=== PATIENT | female | born 1975 | race Caucasian/White ===

== ENCOUNTER 2022-09-18 13:46 | Outpatient (CLI) | payer OTHER, SELFPAY ==
--- NOTE | 2022-09-18 14:00 | CRLHL7_ITS ---
For Patients: As a result of the Cures Act, medical imaging exams and procedure reports are released immediately into your electronic medical record. You may view this report before your referring provider. If you have questions, please contact your health care provider. BILATERAL SCREENING MAMMOGRAM WITH COMPUTER-AIDED DETECTION AND TOMOSYNTHESIS TECHNIQUE: CC and MLO views were obtained. These mammographic images have been obtained using full-field digital technique. These mammographic images were interpreted with the benefit of computer-aided detection. Breast Tomosynthesis was used in this interpretation. COMPARISON FILM: 02/14/21, 01/23/20, 11/27/18. FINDINGS: There are scattered areas of fibroglandular density IMPRESSION: There is no radiographic evidence for malignancy. ASSESSMENT: BI-RADS Category 2: Benign RECOMMENDATION: Routine screening mammogram in 1 year. A lay language report of this examination will be provided to the patient. Slava Lockwood M.D. Diagnostic/Nuclear Medicine Radiologist [email or web address] DANYEL/Dictated by: Slava Lockwood MD @ 09/21/2022 8:25:00 AM (Electronically Signed)
== END 2022-09-18 13:47 | disposition home or self-care (01) ==
LOC: MAMMO 13:49
PROVIDERS: PCP Emergency Medicine; Visit Provider Emergency Medicine
DX: Z12.31 Encounter for screening mammogram for malignant neoplasm of breast (principal)
CPT/HCPCS: 77063; 77067

== ENCOUNTER 2022-11-07 10:33 | Outpatient (CLI) | payer SELFPAY | END 2022-11-07 10:34 | disposition home or self-care (01) | LOC: NFLDREF 11-09 09:28 | PROVIDERS: PCP Emergency Medicine; Referring Provider Emergency Medicine; Visit Provider Emergency Medicine | DX: E78.5 Hyperlipidemia, unspecified (principal) | CPT/HCPCS: 80061; 84460 ==

== ENCOUNTER 2024-05-19 14:35 | Outpatient (CLI) | payer BC, SELFPAY ==
--- NOTE | 2024-05-19 14:40 | CRLHL7_ITS ---
For Patients: As a result of the Century Cures Act, medical imaging exams and procedure reports are released immediately into your electronic medical record. You may view this report before your referring provider. If you have questions, please contact your health care provider. BILATERAL SCREENING MAMMOGRAM WITH COMPUTER-AIDED DETECTION AND TOMOSYNTHESIS TECHNIQUE: CC and MLO views were obtained. These mammographic images have been obtained using full-field digital technique. These mammographic images were interpreted with the benefit of computer-aided detection. Breast Tomosynthesis was used in this interpretation. COMPARISON FILM: 09/18/22, 02/14/21, 01/23/20. FINDINGS: There are scattered areas of fibroglandular density IMPRESSION: There is no radiographic evidence for malignancy. ASSESSMENT: BI-RADS Category 1: Negative RECOMMENDATION: Routine screening mammogram in 1 year. A lay language report of this examination will be provided to the patient. Kvng David M.D. Diagnostic Radiologist [email or web address] DANYEL/Dictated by: Kvng David MD @ 05/27/2024 12:34:00 PM (Electronically Signed)
== END 2024-05-19 14:36 | disposition home or self-care (01) ==
LOC: MAMMO 14:35
PROVIDERS: PCP Physician Assistant Medical
DX: Z12.31 Encounter for screening mammogram for malignant neoplasm of breast (principal)
CPT/HCPCS: 77063; 77067

== ENCOUNTER 2024-07-09 14:51 | Outpatient (CLI) | payer BC, SELFPAY ==
--- NOTE | 2024-07-09 15:00 | CRLHL7_ITS ---
For Patients: As a result of the Century Cures Act, medical imaging exams and procedure reports are released immediately into your electronic medical record. You may view this report before your referring provider. If you have questions, please contact your health care provider. INDICATION: Chronic sinusitis. TECHNIQUE: High-resolution CT images of the paranasal sinuses were obtained without contrast. FINDINGS: Frontal: The frontal air cells are hypoplastic. The small but dominant right frontal air cell is clear and the inferior frontal recess patent. Ethmoid: The ethmoid air cells are clear bilaterally. Sphenoid: Sphenoid air cells are clear the sphenoid ethmoidal recesses are patent. Maxillary: Maxillary sinuses are clear at this time. There are small bilateral Hadley cells. The adjacent to the ostiomeatal units are patent bilaterally. Nasal fossa: Subtle convex left curve of the nasal septum the posterior nasal fossa and the nasopharynx are unremarkable. Mastoid air cells are clear bilaterally. IMPRESSION: 1. Clear paranasal sinuses and patent bilateral ostiomeatal units at this time. 2. Incidental note of hypoplastic frontal air cells. 3. Subtle convex left curvature of the nasal septum. Please note that all CT scans at this facility use dose modulation, iterative reconstruction, and/or weight-based dosing when appropriate to reduce radiation dose to as low as reasonably achievable. Dictated by Slava Trejo MD @ 07/10/2024 11:15:24 AM (Electronically Signed)
== END 2024-07-09 14:52 | disposition home or self-care (01) ==
LOC: CT 14:52
PROVIDERS: PCP Physician Assistant Medical; Visit Provider Otolaryngology
DX: J32.9 Chronic sinusitis, unspecified (principal); J34.2 Deviated nasal septum
CPT/HCPCS: 70486

== ENCOUNTER 2025-07-01 13:59 | Outpatient (CLI) | payer BC, SELFPAY | END 2025-07-01 14:00 | disposition home or self-care (01) | LOC: NFLDREF 07-06 02:55 | PROVIDERS: PCP Physician Assistant Medical; Referring Provider Physician Assistant Medical; Visit Provider Physician Assistant Medical | DX: E03.8 Other specified hypothyroidism (principal); E10.9 Type 1 diabetes mellitus without complications | CPT/HCPCS: 80053; 84443 ==

== ENCOUNTER 2025-08-26 14:26 | Outpatient (CLI) | payer BC, SELFPAY ==
--- NOTE | 2025-08-26 14:40 | CRLHL7_ITS ---
For Patients: As a result of the Century Cures Act, medical imaging exams and procedure reports are released immediately into your electronic medical record. You may view this report before your referring provider. If you have questions, please contact your health care provider. INDICATION: BILATERAL SCREENING MAMMOGRAM, ASYMPTOMATIC 50 Y/O FEMALE COMPARISON: 05/19/2024, 09/18/2022, 02/14/2021 TECHNIQUE: Digital mammogram in CC and MLO projections including computer-aided detection (CAD) and tomosynthesis. BREAST COMPOSITION: There are scattered areas of fibroglandular density. FINDINGS: No suspicious findings. ASSESSMENT: BI-RADS 1 Negative RECOMMENDATION: Annual screening mammogram. A lay language report of this examination will be provided to the patient. Dictated by: Kvng David MD @ 08/28/2025 09:03:34 (Electronically Signed)
== END 2025-08-26 14:27 | disposition home or self-care (01) ==
LOC: MAMMO 14:27
PROVIDERS: PCP Physician Assistant Medical; Visit Provider Physician Assistant Medical
DX: Z12.31 Encounter for screening mammogram for malignant neoplasm of breast (principal)
CPT/HCPCS: 77063; 77067